=== PATIENT | male | born 1970 | race African-American/Black ===

== ENCOUNTER 2018-06-09 05:15 | Emergency (ER) | payer MEDICARE, MEDICAID ==
[~2018-06-09] VITALS: Ht 180.3 cm; Wt 87.1 kg
[2018-06-09 05:18] VITALS: BP 126/82
[2018-06-09] MEDS ORDERED: IBUPROFEN 200 MG TABLET ONE (07:19)
[2018-06-09] MEDS ORDERED: IBUPROFEN 200 MG TABLET PO ONE (07:30)
== END 2018-06-09 08:09 | disposition home or self-care (01) ==
LOC: ED 07:25
DX: M25.562 Pain in left knee (principal)
CPT/HCPCS: 99284

== ENCOUNTER 2018-06-15 00:57 | Emergency (ER) | payer MEDICAID, MEDICARE ==
[~2018-06-15] VITALS: Ht 180.3 cm; Wt 90.0 kg
[2018-06-15 00:59] VITALS: BP 126/88
== END 2018-06-15 02:20 | disposition home or self-care (01) ==
LOC: ED 01:33
DX: Z04.8 Encounter for examination and observation for other specified reasons (principal); F12.90 Cannabis use, unspecified, uncomplicated; Z72.89 Other problems related to lifestyle; I10 Essential (primary) hypertension; Z59.0 Homelessness
CPT/HCPCS: 99281